=== PATIENT | female | born 1970 | race Caucasian/White ===

== ENCOUNTER 2018-01-16 23:22 | Emergency (ER) | payer MEDICAID ==
[~2018-01-16] VITALS: Ht 157.5 cm; Wt 65.9 kg
[2018-01-17] MEDS ORDERED: KETOROLAC TROMETHAMINE 60 MG/2 ML VIAL IM ONE (00:30)
[2018-01-17 03:33] VITALS: BP 127/76
== END 2018-01-17 03:44 | disposition home or self-care (01) ==
LOC: EMS 23:23
DX: S00.33XA Contusion of nose, initial encounter (principal); E78.00 Pure hypercholesterolemia, unspecified; Y04.0XXA Assault by unarmed brawl or fight, initial encounter; Y93.89 Activity, other specified; Y92.89 Other specified places as the place of occurrence of the external cause; Y99.8 Other external cause status
CPT/HCPCS: 70140; 96372; 99284; J1885